=== PATIENT | female | born 1945 | race Caucasian/White ===

== ENCOUNTER 2018-12-05 00:22 | Inpatient (IN) | payer MEDICAID ==
[~2018-12-05] VITALS: Ht 157.5 cm; Wt 101.6 kg
[2018-12-05 00:40] VITALS: BP 121/69
--- NOTE | 2018-12-05 00:40 | NUR ---
SOLAR PV INSTALLERMACHINE OPERATOR PICKER NOTES Patient is a 73 YO, Tuvaluan-speaking female who is a direct admit from [facility], accompanied by family member. Patient is alert, oriented x 4. Breathing even and unlabored, not in any distress, on room air. Patient is able to make needs known, is able to follow commands and is ambulate to the toilet with standby assist. NIHSS done- no drift noted on patient's motor function. Patient stated that she has a little bit of pain on left arm, but refused pain medication when offered. Stated that it is a little numb that radiates to the shoulder. Patient denies smoking, drinking and drug use. Patient on tele monitor- sinus parminder 55. No skin issues noted. Oriented to call light- placed within easy reach. Bed in low, locked position. Will continue to monitor accordingly
[2018-12-05 00:45] VITALS: BP 121/69
[2018-12-05] MEDS ORDERED: VALS160T2 PO (01:14)
[2018-12-05] MEDS ORDERED: ATOR40TA PO (01:14)
[2018-12-05] MEDS ORDERED: GABA-534 PO (01:14)
--- NOTE | 2018-12-05 02:30 | NUR ---
RN NOTES Stroke education booklet given to patient.
[2018-12-05 04:00] VITALS: BP 132/76
--- NOTE | 2018-12-05 04:50 | NUR ---
RN NOTES Patient passed nursing swallow evaluation. Dr. Wilson made aware
[2018-12-05] MEDS: HEPARIN SODIUM, PORCINE 5000 UNITS/1 ML VIAL SQ SCH ×3 (05:05→21:06)
[2018-12-05] MEDS ORDERED: BLOOD SUGAR DIAGNOSTIC 1 EACH STRIP IN SCH (06:00)
[2018-12-05] MEDS: HYDROCODONE/APAP 5/325MG 1 EACH TABLET PO PRN ×4 (06:16→18:30)
--- NOTE | 2018-12-05 06:17 | NUR ---
RN NOTES Patient c/o pain on left arm, 02/16. Union 5-325 given as ordered. Will continue to monitor
[2018-12-05 07:08] LABS: BASOPHILS % (AUTO) 0.5 % (0.0-2.0); EOSINOPHILS % (AUTO) 2.6 % (0.0-6.0); HEMATOCRIT 38 % (33-45); HEMOGLOBIN 12.4 g/dL (11.5-14.8); LYMPHOCYTES # (AUTO) 1.9 /CMM (0.8-4.8); LYMPHOCYTES % (AUTO) 21.6 % (20.0-44.0); MEAN CORPUSCULAR HGB CONC 33 g/dl (31.0-36.0); MONOCYTES # (AUTO) 0.6 /CMM (0.1-1.30); MONOCYTES % (AUTO) 7.3 % (2.0-12.0); NEUTROPHILS # (AUTO) 5.9 /CMM (1.8-8.9); PLATELET COUNT (AUTO) 217 /CMM (150-450); RED BLOOD CELL COUNT(AUTO) 4.25 MIL/uL (4.0-5.2); WHITE BLOOD COUNT (AUTO) 8.6 K/uL (4.3-11.0)
[2018-12-05 07:09] LABS: MEAN CORPUSCULAR VOLUME 90 fL (82-100)
--- NOTE | 2018-12-05 07:20 | NUR ---
WATER TECHNICIAN CLOSING NOTES Patient in bed, alert, oriented x 4, japanese speaking only. Breathing even and unlabored. Not in any distress. No complaints at this time. Neurologic assessment done- no drift notes. Arm strength on left side 4/5 compared to R arm /5. Tele monitor in place- sinus parminder 51. All needs attended. Endorsed KARIS to AM RN
[2018-12-05 07:30] LABS: ALANINE AMINOTRANSFERASE 39 U/L (12-78); ALKALINE PHOSPHATASE 87 U/L (46-116); ASPARTATE AMINOTRANSFERASE 18 U/L (15-37); CALCIUM, SERUM 9.3 mg/dL (8.5-10.1); CARBON DIOXIDE 26 mmol/L (21-32); CHLORIDE 106 mmol/L (98-107); CREATININE 0.6 mg/dL (0.6-1.3); GLUCOSE 105 mg/dL (74-106); POTASSIUM 4.4 mmol/L (3.5-5.1); SODIUM SERUM 140 mmol/L (136-145); UREA NITROGEN, BLOOD 15 mg/dL (7-18)
[2018-12-05 07:31] LABS: ALBUMIN 2.8 g/dL (3.4-5.0); B-TYPE NATRIURETIC PEPTIDE 48 PG/ML (0-125); MAGNESIUM 2.2 mg/dL (1.8-2.4); TOTAL PROTEIN, SERUM 6.6 g/dL (6.4-8.2)
[2018-12-05 07:37] LABS: CHOLESTEROL 99 mg/dL (<200); TRIGLYCERIDES 71 mg/dL (30-150)
[2018-12-05 07:38] LABS: HDL CHOLESTEROL 40 mg/dL (40-60); LDL 57 mg/dL (0-99); THYROID STIMULATING HORMONE 2.282 uIU/mL (0.358-3.74)
--- NOTE | 2018-12-05 07:49 | NUR ---
RN OPENING NOTE REC PT. PT STABLE, IN BED. NO S/S OF SOB, ON RA. NO C/O PAIN AT THIS TIME. TELE MONITOR IN PLACE, SB 50 BPM. PT TO BE EVAL BY NEURO, SPEECH, PT/OT. CM CONSULT ALSO ORDERED. SAFETY MEASURES IN PLACE, CALL LIGHT IN REACH. WILL CONT TO MONITOR.
[2018-12-05 08:00] VITALS: BP 120/65
[2018-12-05] MEDS: BLOOD SUGAR DIAGNOSTIC 1 EACH STRIP IN SCH ×4 (08:15→21:22)
[2018-12-05] MEDS: PANTOPRAZOLE 40 MG TABLET.DR PO SCH (08:16)
[2018-12-05] MEDS: DOCUSATE SODIUM 100 MG CAPSULE PO SCH (08:16)
[2018-12-05] MEDS: ASPIRIN EC 325 MG TABLET.DR PO SCH (08:54)
[2018-12-05 09:51] LABS: APPEARANCE,URINE SL CLOUDY (CLEAR); BILIRUBIN,URINE NEGATIVE (NEGATIVE); BLOOD, URINE NEGATIVE Ery/uL (NEGATIVE); COLOR,URINE YELLOW (YELLOW); KETONES,URINE NEGATIVE (NEGATIVE); LEUKOCYTE ESTERASE ,URINE NEGATIVE (NEGATIVE); NITRITE, URINE NEGATIVE (NEGATIVE); PROTEIN,URINE NEGATIVE (NEGATIVE); UGLUCOSE NEGATIVE (NEGATIVE)
[2018-12-05 16:00] VITALS: BP 131/68
--- NOTE | 2018-12-05 18:17 | NUR ---
RN CLOSING NOTE PT STABLE. PT HAS C/O PAIN IN LEFT HAND/SHOULDER, WILL ADDRESS PHARMACOLOGICALLY. ALL PT NEEDS ANTICIPATED AND MET. SAFETY MEASURES IN PLACE, CALL LIGHT IN REACH. WILL ENDORSE TO TUBE COVERER FOR KARIS.
--- NOTE | 2018-12-05 19:39 | NUR ---
RN OPENING NOTES RECEIVED PATIENT AWAKE, RESTING COMFORTABLY IN BED. PATIENT IS A/O X 3. FAMILY AT BEDSIDE. [place]LAND[place] SPEAKING ONLY. NO SIGNS OF RESPIRATORY DISTRESS. DENIES SOB. ON ROOM AIR. DENIES ANY DISCOMFORT AT THIS TIME. PAIN HAS SUBSIDED OF RIGHT NOW. SAFETY PRECAUTIONS IMPLEMENTED. CALL LIGHT WITHIN REACH. WILL CONTINUE TO MONITOR PATIENT.
[2018-12-05 20:00] VITALS: BP 137/91
[2018-12-06] VITALS: BP 140/73
--- NOTE | 2018-12-06 00:17 | NUR ---
RN NOTES OBTAINED SIGNED CONSENTS FOR CTA BRAIN AND CT HEAD WITH OR WITHOUT CONTRAST. PEDRO Arndt ASSISTED ME WITH TRANSLATING. PATIENT UNDERSTOOD WHAT WAS BEING ASKED AND DONE.
[2018-12-06] MEDS ORDERED: CT SWABBABLE VALVE TRANS SET 1 EA INFUS.SET MC ONE (00:26)
[2018-12-06] MEDS ORDERED: IV NS 0.9% 250 ML IV ONE (00:26)
[2018-12-06] MEDS ORDERED: IOHEXOL-350 100 ML VIAL IV ONE (00:26)
[2018-12-06 02:30] VITALS: BP 152/81
[2018-12-06 04:00] VITALS: BP 119/74
[2018-12-06] MEDS: HEPARIN SODIUM, PORCINE 5000 UNITS/1 ML VIAL SQ SCH ×2 (04:38→13:57)
--- NOTE | 2018-12-06 04:58 | NUR ---
RN NOTES PATIENT IS SINUS FE 45-50. BLOOD PRESSURE WNL. NO SIGNS OF POOR PERFUSION. MENTAL STATUS IS WNL. NO CHEST DISCOMFORT NOTED. PATIENT IS ASYMPTOMATIC AT THIS TIME.
--- NOTE | 2018-12-06 06:20 | NUR ---
RN CLOSING NOTES PATIENT IS AWAKE IN BED, RESTING COMFORTABLY. PATIENT IS A/O X 4. NO SIGNS OF RESPIRATORY DISTRESS. DENIES SOB. DENIES PAIN OR DISCOMFORT AT THIS TIME. NEURO ASSESSMENT DONE, NO DRIFT NOTES. LEFT UPPER ARM EXTREMITY STILL WEAK. TELE READING IN PLACE: CURRENT READING SINUS FE 57, ASYMPTOMATIC. NO SIGNS OF POOR PERFUSION. ALL NEEDS ATTENDED TO. SAFETY PRECAUTIONS IMPLEMENTED. CALL LIGHT WITHIN REACH. WILL ENDORSE TO AM SHIFT FOR CONTINUITY OF CARE.
[2018-12-06 06:46] LABS: CHOLESTEROL 103 mg/dL (<200); HDL CHOLESTEROL 40 mg/dL (40-60); LDL 60 mg/dL (0-99); TRIGLYCERIDES 68 mg/dL (30-150)
[2018-12-06 06:49] LABS: BASOPHILS % (AUTO) 0.7 % (0.0-2.0); EOSINOPHILS % (AUTO) 3.5 % (0.0-6.0); HEMATOCRIT 38 % (33-45); HEMOGLOBIN 12.5 g/dL (11.5-14.8); LYMPHOCYTES # (AUTO) 1.9 /CMM (0.8-4.8); LYMPHOCYTES % (AUTO) 27.2 % (20.0-44.0); MEAN CORPUSCULAR HGB CONC 33 g/dl (31.0-36.0); MEAN CORPUSCULAR VOLUME 89 fL (82-100); MONOCYTES # (AUTO) 0.4 /CMM (0.1-1.30); MONOCYTES % (AUTO) 5.5 % (2.0-12.0); NEUTROPHILS # (AUTO) 4.4 /CMM (1.8-8.9); NEUTROPHILS % (AUTO) 63.1 % (43.0-81.0); PLATELET COUNT (AUTO) 209 /CMM (150-450); RED BLOOD CELL COUNT(AUTO) 4.23 MIL/uL (4.0-5.2)
[2018-12-06 06:58] LABS: CALCIUM, SERUM 9.1 mg/dL (8.5-10.1); CARBON DIOXIDE 27 mmol/L (21-32); CHLORIDE 105 mmol/L (98-107); CREATININE 0.6 mg/dL (0.6-1.3); GLUCOSE 108 mg/dL (74-106); POTASSIUM 4.4 mmol/L (3.5-5.1); SODIUM SERUM 138 mmol/L (136-145); UREA NITROGEN, BLOOD 15 mg/dL (7-18)
--- NOTE | 2018-12-06 07:15 | NUR ---
manager commission Opening Note Patient currently resting in bed with eyes open in Semi-Fowlers position, no acute distress noted. Easily arousable to verbal stimuli. Alert and oriented to self, able to make needs known. No acute neurological changes at this time. Respirations even and unlabored on room air. External cardiac sonographer in place: current rhythm sinus bradycardia at 48 bpm, patient remains asymptomatic. Peripheral IV access to the left AC 20 gauge, intact, patent and saline locked. Safety and fall precautions in place: bed in lowest and locked position, side rails up x2, bed alarm on, call light and personal possessions in reach, room well lit, floor clutter-free. Updated patient on plan of care, verbalized understanding. Patient currently clean, dry and comfortable. Will continue to monitor and intervene as needed.
[2018-12-06] MEDS: BLOOD SUGAR DIAGNOSTIC 1 EACH STRIP IN SCH ×3 (07:30→17:15)
[2018-12-06 08:00] VITALS: BP 143/83
[2018-12-06] MEDS: PANTOPRAZOLE 40 MG TABLET.DR PO SCH (08:28)
[2018-12-06] MEDS ORDERED: VALSARTAN 80 MG TABLET PO SCH (09:00)
[2018-12-06] MEDS: DOCUSATE SODIUM 100 MG CAPSULE PO SCH (09:21)
[2018-12-06] MEDS: GABAPENTIN 300 MG CAPSULE PO SCH ×2 (09:22→17:00)
[2018-12-06] MEDS: ASPIRIN EC 325 MG TABLET.DR PO SCH (09:22)
[2018-12-06] MEDS ORDERED: ASPI-1152 PO (10:40)
[2018-12-06 15:46] VITALS: BP 102/62
--- NOTE | 2018-12-06 19:00 | NUR ---
roof tile layer Closing Note Patient currently resting in bed with eyes open in Semi-Fowlers position, no acute distress noted. Easily arousable to verbal stimuli. Alert and oriented to self, able to make needs known. No acute neurological changes at this time. Respirations even and unlabored on room air. External nuclear monitoring technician in place: current rhythm sinus bradycardia at 52 bpm, patient remains asymptomatic. Peripheral IV access to the left AC 20 gauge, intact, patent and saline locked. Safety and fall precautions in place: bed in lowest and locked position, side rails up x2, bed alarm on, call light and personal possessions in reach, room well lit, floor clutter-free. Updated patient on plan of care, verbalized understanding. Patient currently clean, dry and comfortable. No acute events this shift. Will endorse to ENDY Franco for continuity of care.
--- NOTE | 2018-12-06 19:50 | NUR ---
MS RN NOTES RECEIVED SITTING ON EDGE OF BED,S/P CT LUMBAR SPINE FOR STENOSIS.PER RADIOLOGY,RESULT WILL AVAILABLE BY TOMORROW MORNING.PATIENT AND SON INFORMED THAT THEY CAN CAN PASS BY TO PICK IT UP ANYTIME.PATIENT FOR D/C HOME TODAY AFTER THE CT SCAN.DISCHARGE INSTRUCTION GIVEN AND SIGNED.DOCUMENTATION NURSE BY SON WITH OWN TRANSPORTATION.BROUGHT DOWN BY MILTON VASQUEZ VIA WHEELCHAIR IN STABLE CONDITION.
[2018-12-06] MEDS ORDERED: ATORVASTATIN 40 MG TABLET PO SCH (22:00)
== END 2018-12-06 19:50 | disposition home or self-care (01) | DRG 48 ==
LOC: TELE 00:30
PROVIDERS: ADMIT Nurse Practitioner Acute Care; ATTEND Nurse Practitioner Acute Care
DX: G62.9 Polyneuropathy, unspecified (principal); E44.1 Mild protein-calorie malnutrition; E66.01 Morbid (severe) obesity due to excess calories; M54.16 Radiculopathy, lumbar region; I10 Essential (primary) hypertension; E78.5 Hyperlipidemia, unspecified; I25.10 Atherosclerotic heart disease of native coronary artery without angina pectoris; Z68.41 Body mass index [BMI] 40.0-44.9, adult; R53.1 Weakness; M79.602 Pain in left arm
CPT/HCPCS: 36415; 70450-TC; 70496-TC; 70498-TC; 72131-TC; 80048-TC; 80053-TC; 80061-TC; 80305; 81000-TC; 82962-TC; 83735-TC; 83880; 84443-TC; 84484-TC; 85025-TC; 85730-TC; 87081-TC; 92526; 92611-TC; 93307-TC; 93880-TC; 97116-TC; 97530-TC; 97535-TC; G0378; J1644; J7050; Q9967